=== PATIENT | female | born 1965 | race Caucasian/White ===

== ENCOUNTER 2016-12-27 22:23 | Emergency (ER) | payer SELFPAY ==
[2016-12-27 22:37] VITALS: BP 173/98; BMI 24.2
[2016-12-27] MEDS ORDERED: NS 1000 ML 1,000 ML ONE ×2 (22:52→23:52)
[2016-12-27] MEDS ORDERED: NS 1000 ML 1,000 ML IV ONE (22:57)
[2016-12-27 22:59] LABS: BASOPHILS # (AUTO) 0.1 X10^3/uL (0.0-0.1); BASOPHILS % (AUTO) 0.8 % (0.2-1.0); EOSINOPHILS # (AUTO) 0.1 x10^3/uL (0.0-0.2); EOSINOPHILS % (AUTO) 1.5 % (0.9-2.9); HEMATOCRIT 44.7 % (36.0-47.0); HEMOGLOBIN 15.6 g/dL (12.0-16.0); LYMPHOCYTES # (AUTO) 2.1 X10^3/uL (1.3-2.9); LYMPHOCYTES % (AUTO) 23.3 % (21.0-51.0); MEAN CORPUSCULAR HEMOGLOBIN 33.1 pg (27.0-34.0); MEAN CORPUSCULAR HGB CONC 34.8 g/dL (33.0-35.0); MEAN CORPUSCULAR VOLUME 94.9 fL (80.0-100.0); MEAN PLATELET VOLUME 7.7 fL (7.4-11.0); MONOCYTES # (AUTO) 0.6 x10^3/uL (0.3-0.8); NEUTROPHILS # (AUTO) 6.1 x10^3/uL (2.2-4.8); NEUTROPHILS % (AUTO) 67.4 % (42.0-75.0); PLATELET COUNT 259 X10^3/uL (150.0-450.0); RED CELL DISTRIBUTION WIDTH 13.3 % (11.6-16.5)
--- NOTE | 2016-12-27 23:08 | DR.GENAD ---
HPI - PCP Primary Care Physician: RENAN - Complaint/Symptoms Chief Complaint Doctors Comments: History as stated. Denies fever. Chief Complaint:: N/V, HEADACHE SINCE WEDNESDAY. NOT ABLE TO EAT. BETTER ON WEDNESDAY, WORSE TODAY. - Source History Provided: Patient - Mode of Arrival Mode of Arrival: Ambulatory - Timing Onset of Chief Complaint: 12/25/16 PMH - PMH Past Medical History: Yes Past Medical History: Dyslipidemia, Hypertension Past Surgical History: Yes Surgical History: [employer] Surgery, Hysterectomy - Family History History of Family Medical Conditions: No - Social History Type of Tobacco Use: Cigarettes Alcohol Use: None Do you use any recreational Drugs:: No Lives With: Family Lives Where: Home - infectious screening Have you traveled outside the country in the last 6 months?: No Isolation: Standard ROS - Review of Systems Eyes: No Symptoms Reported ENTM: No Symptoms Reported Respiratoy: No Symptoms Reported Cardiovascular: No Symptoms Reported Gastrointestinal/Abdominal: No Symptoms Reported Genitourinary: No Symptoms Reported Neurological: No Symptoms Reported Musculoskeletal: No Symptoms Reported Integumentary: No Symptoms Reported Hematologic/Lymphatic: No Symptoms Reported Endocrine: No Symptoms Reported Psychiatric: No Symptoms Reported All Other Systems: Reviewed and Negative PE - Vital Signs Vitals: Temperature 98.3 F Pulse Rate 100 Respiratory Rate 20 Blood Pressure [Left Arm] 148/91 Blood Pressure 173/98 O2 Sat by Pulse Oximetry 96 - General General Appearance: Alert, In No Apparent Distress - Head Head Exam: Normal Inspection, Atraumatic - Eyes Eye exam: Normal Appearance, PERRL, EOMI - ENT ENT Exam: Normal Exam External Ear Exam: Normal External Inspection TM/Canal Exam: Bilateral Normal Nose Exam: Normal Nose Exam, Sinus Tenderness Mouth Exam: Normal Inspection Throat Exam: Normal Inspection - Neck Neck Exam: Normal Inspection, Full ROM - Chest Chest Inspection: Normal Inspection, Symmetric Chest Wall Rise - Respiratory Respiratory Exam: Normal Lung Sounds Bilat Respiratory Exam: Bilateral Clear to Auscultation - Cardiovascular Cardiovascular Exam: Regular Rate, Normal Rhythm - Abdominal Exam Abdominal Exam: Normal Inspection, Normal Bowel Sounds - Extremities Extremities Exam: Normal Inspection, Full ROM - Back Back Exam: Normal Inspection, Full ROM - Neurologic Neurological Exam: Alert, Oriented X3, CN II-XII Intact - Skin Skin Exam: Warm, Dry, Intact Course - Reevaluation 1st: Improved ROR - Labs Reviewed Result Diagrams: 12/27/16 22:40 12/27/16 22:40 Laboratory: WBC 9.0 X10^3/uL (3.6-10.0) 12/27/16 22:40 RBC 4.70 X10^6/uL (3.5-5.4) 12/27/16 22:40 Hgb 15.6 g/dL (12.0-16.0) 12/27/16 22:40 Hct 44.7 % (36.0-47.0) 12/27/16 22:40 MCV 94.9 fL (80.0-100.0) 12/27/16 22:40 MCH 33.1 pg (27.0-34.0) 12/27/16 22:40 MCHC 34.8 g/dL (33.0-35.0) 12/27/16 22:40 RDW 13.3 % (11.6-16.5) 12/27/16 22:40 Plt Count 259 X10^3/uL (150.0-450.0) 12/27/16 22:40 MPV 7.7 fL (7.4-11.0) 12/27/16 22:40 Neut % 67.4 % (42.0-75.0) 12/27/16 22:40 Lymph % 23.3 % (21.0-51.0) 12/27/16 22:40 Stephens % 7.0 % (0.0-13.0) 12/27/16 22:40 Eos % 1.5 % (0.9-2.9) 12/27/16 22:40 Baso % 0.8 % (0.2-1.0) 12/27/16 22:40 Neut # 6.1 x10^3/uL (2.2-4.8) H 12/27/16 22:40 Lymph # 2.1 X10^3/uL (1.3-2.9) 12/27/16 22:40 Stephens # 0.6 x10^3/uL (0.3-0.8) 12/27/16 22:40 Eos # 0.1 x10^3/uL (0.0-0.2) 12/27/16 22:40 Baso # 0.1 X10^3/uL (0.0-0.1) 12/27/16 22:40 Absolute Nucleated RBC 0.1 /100WBC 12/27/16 22:40 Sodium 137 mmol/L (136-145) 12/27/16 22:40 Corrected Sodium TNP 12/27/16 22:40 Potassium 3.4 mmol/L (3.5-5.1) L 12/27/16 22:40 Chloride 97 mmol/L (98-107) L 12/27/16 22:40 Carbon Dioxide 32.5 mmol/L (21-32) H 12/27/16 22:40 BUN 13 mg/dL (7-18) 12/27/16 22:40 Creatinine 0.84 mg/dL (0.55-1.02) 12/27/16 22:40 Est GFR (MDRD) Af Amer > 60 (>60) 12/27/16 22:40 Est GFR (MDRD) Non-Af > 60 (>60) 12/27/16 22:40 Glucose 105 mg/dL (65-99) H 12/27/16 22:40 Calcium 9.2 mg/dL (8.5-10.1) 12/27/16 22:40 Corrected Calcium TNP 12/27/16 22:40 Total Bilirubin 0.80 mg/dL (0.2-1.0) 12/27/16 22:40 AST 15 Units/L (15-37) 12/27/16 22:40 ALT 21 Units/L (12-78) 12/27/16 22:40 Alkaline Phosphatase 74 Units/L (46-116) 12/27/16 22:40 Total Protein 8.1 g/dL (6.4-8.2) 12/27/16 22:40 Albumin 4.3 g/dL (3.4-5.0) 12/27/16 22:40 Globulin 3.8 g/dL (2.5-4.5) 12/27/16 22:40 Albumin/Globulin Ratio 1.1 Ratio (1.1-2.1) 12/27/16 22:40 Amylase 40 Units/L (25-115) 12/27/16 22:40 Lipase 60 Units/L (73-393) L 12/27/16 22:40 - Diagnosis Discharge Problem: Acute vomiting, Dehydration, mild - Discharge Plan Condition: Stable - Follow ups/Referrals Follow ups/Referrals: NFD,None [Primary Care Provider] - 3 days - Instructions
[2016-12-27 23:10] LABS: ALANINE AMINOTRANSFERASE 21 Units/L (12-78); ALBUMIN 4.3 g/dL (3.4-5.0); ALKALINE PHOSPHATASE 74 Units/L (46-116); AMYLASE 40 Units/L (25-115); ASPARTATE AMINO TRANSFERASE 15 Units/L (15-37); BLOOD UREA NITROGEN 13 mg/dL (7-18); CALCIUM 9.2 mg/dL (8.5-10.1); CARBON DIOXIDE 32.5 mmol/L (21-32); CHLORIDE 97 mmol/L (98-107); CREATININE 0.84 mg/dL (0.55-1.02); GLUCOSE 105 mg/dL (65-99); LIPASE 60 Units/L (73-393); SODIUM 137 mmol/L (136-145); TOTAL PROTEIN 8.1 g/dL (6.4-8.2); eGFR BLACK RACES > 60 (>60); eGFR NON BLACK RACES > 60 (>60)
[2016-12-27] MEDS ORDERED: MORPHINE SULFATE INJ 4 MG IVP ONE (23:47)
[2016-12-27] MEDS ORDERED: ZOFRAN INJ 4 MG VIAL IVP ONE (23:48)
[2016-12-27] MEDS ORDERED: ZOFRAN INJ 4 MG VIAL ONE (23:50)
[2016-12-27] MEDS ORDERED: MORPHINE SULFATE INJ 4 MG ONE (23:51)
[2016-12-28] MEDS ORDERED: NS 1000 ML 1,000 ML IV ONE
== END 2016-12-28 01:20 | disposition home or self-care (01) ==
LOC: ER 22:23
DX: R11.10 Vomiting, unspecified (principal); E86.0 Dehydration
CPT/HCPCS: 36415; 80053; 82150; 83690; 85025; 96365; 96367; 96374; 96375; 99282; 99283; A4222; J2270; J2405